=== PATIENT | male | born 1940 | race Caucasian/White ===

== ENCOUNTER → 2016-12-23 | Outpatient (CLI) | payer MEDICARE | END | disposition home or self-care (01) | LOC: PCVCIMAG 09:30 | PROVIDERS: ATTEND Internal Medicine | DX: I65.21 Occlusion and stenosis of right carotid artery (principal); I25.10 Atherosclerotic heart disease of native coronary artery without angina pectoris; I10 Essential (primary) hypertension; I26.99 Other pulmonary embolism without acute cor pulmonale; K90.0 Celiac disease; I21.3 ST elevation (STEMI) myocardial infarction of unspecified site | CPT/HCPCS: 93880; G0463 ==

== ENCOUNTER → 2017-06-23 | Outpatient (CLI) | payer MEDICARE | END | disposition home or self-care (01) | LOC: PCVCCLINIC 13:40 | PROVIDERS: ATTEND Internal Medicine Cardiovascular Disease | DX: I25.10 Atherosclerotic heart disease of native coronary artery without angina pectoris (principal); I10 Essential (primary) hypertension; E78.5 Hyperlipidemia, unspecified; I65.23 Occlusion and stenosis of bilateral carotid arteries; K90.0 Celiac disease; Z86.711 Personal history of pulmonary embolism; Z79.82 Long term (current) use of aspirin; Z79.899 Other long term (current) drug therapy | CPT/HCPCS: 80061; 93005; G0463 ==

== ENCOUNTER → 2017-12-28 | Outpatient (CLI) | payer MEDICARE | END | disposition home or self-care (01) | LOC: PCVCIMAG 14:48 | DX: I65.23 Occlusion and stenosis of bilateral carotid arteries (principal); I25.10 Atherosclerotic heart disease of native coronary artery without angina pectoris; I10 Essential (primary) hypertension; E78.5 Hyperlipidemia, unspecified; K90.0 Celiac disease; Z86.711 Personal history of pulmonary embolism; Z79.82 Long term (current) use of aspirin; Z79.899 Other long term (current) drug therapy | CPT/HCPCS: 36415; 93005; 93880; G0463 ==

== ENCOUNTER → 2018-07-06 | Outpatient (CLI) | payer MEDICARE | END | disposition home or self-care (01) | LOC: PCVCCLINIC 12:37 | PROVIDERS: ATTEND Internal Medicine | DX: I25.10 Atherosclerotic heart disease of native coronary artery without angina pectoris (principal); E78.5 Hyperlipidemia, unspecified; I10 Essential (primary) hypertension | CPT/HCPCS: 36415 ==

== ENCOUNTER → 2018-07-23 | Outpatient (CLI) | payer MEDICARE ==
--- NOTE | 2018-07-23 16:06 | PCVCIMAG ---
APPROVED REPORT Imaging Protocol: Rest Tc-99m/Stress Tc-99m 1 day Study performed: 07/23/2018 08:47:20 Indication: CAD , Pre-Operative CV evaluation Patient Location: Out-Patient Stress Nurse: Lise Noble RN [place] Tech:Maura Roy DEVELOPMENT MANAGER Ht: 6 ft 0 in Wt: 202 lbs BSA: 2.14 m2 HR: 63 bpm BP: 161/67 mmHg BMI: 27.3 Rhythm: SR, First degree AV Block Medical History Medical History: Hyperlipidemia, HTN, PVD, DE Medications: Aspirin, carvedilol (held 24h), ramipril, simvastatin Allergies: No known drug allergies Previous Cardiac Procedures: PCI Pretest Chest Pain Characteristics: No chest pain Resting Data Rest SPECT myocardial perfusion imaging was performed in supine position 45 minutes following the intravenous injection of 10.7 mCi of Tc-99m Sestamibi. Time of rest injection: 0900 Date: 07/23/2018 Administration Route: IV Administration Site: Right Wrist Pharmacologic Stress Pharmacologic stress test was performed by injecting Regadenoson 0.4 mg IV push over 10-15 seconds immediately followed by the intravenous injection of 35 mCi of Tc-99m Sestamibi. Time of stress injection: 1000 Date: 07/23/2018 Administration Route: IV Administration Site: Right Wrist Gated Stress SPECT was performed 45 minutes after stress injection. The images were gated to evaluate regional wall motion and calculate left ventricular ejection fraction. Comments Prior Nuclear Stress Test 05/2016: Nonischemic, inferoapical infarct Stress Test Details Stress Test: Pharmacologic stress testing performed using 0.4 mg of regadenoson per 5 mL given IV over 10 seconds. Reason for pharmacologic stress test: physical limitation. HRMax Heart Rate (APMHR): 140 bpm Resting HR: 63 bpmTarget HR (85% APMHR): 119 bpm Max HR Achieved: 83 bpm % of APMHR: 59 Recovery HR: 81 bpm BP Resting BP: 161/67 mmHg Recovery BP: 173/77 mmHg ECG Resting ECG: SR with 1st degree AVB Stress ECG: SR with 1st degree AVB ST Change: None Maximum ST Deviation: 0 mm Arrhythmia: None Recovery ECG: SR with 1st degree AVB Recovery ST Change: None Recovery ST Deviation: 0 mm Recovery Arrhythmia: None Clinical Reason for Termination: Completed protocol Stress Symptoms: Nausea Exercise duration: 0 min 55 sec Symptoms resolved with caffeine. Stress ECG Conclusion ECG: Non-ischemic Clinical: Non-ischemic Study Quality Study: Good Study Data Post stress, the left ventricular ejection was 71%.. SSS: 5 SRS: 5 SDS: 2 TID = 1.21. Perfusion No evidence of stress induced ischemia. 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 Nuclear Conclusion No evidence of stress induced ischemia. 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 Post stress, the left ventricular ejection was 71%. No change since prior study dated May 2016. Interpreted by: Kevin Shahid MD Electronically Approved: 07/23/2018 15:55:47 <Conclusion> ECG: Non-ischemic Clinical: Non-ischemic
== END | disposition home or self-care (01) ==
LOC: PCVCIMAG 12:36
PROVIDERS: ATTEND Internal Medicine
DX: Z01.818 Encounter for other preprocedural examination (principal); I25.10 Atherosclerotic heart disease of native coronary artery without angina pectoris; I73.9 Peripheral vascular disease, unspecified; I10 Essential (primary) hypertension; E78.5 Hyperlipidemia, unspecified; I21.9 Acute myocardial infarction, unspecified
CPT/HCPCS: 78452; 93017; A9500

== ENCOUNTER → 2018-07-27 | Outpatient (CLI) | payer MEDICARE ==
[~2018-07-27] MED LIST: DIAZEPAM 10 MG TABLET. ONE; IOHEXOL 300 MG/ML 100ML VIAL. ONE; IV NORMAL SALINE 1000ML BAG 1,000 ML ONE; LIDOCAINE 1%/EPI 1:100,000 20 ML VIAL. ONE; MIDAZOLAM HCL/PF 2 MG/2 ML VIAL. ONE; REGADENOSON 0.4 MG/5 ML DISP.SYRIN. IV ONE; fentaNYL PF VIAL 100 MCG/2 ML VIAL ONE
--- NOTE | 2018-07-27 12:27 | PCVCINTER ---
EXAM: 1. CERVICOEPHALIC ARCH AORTOGRAM. 2. BILATERAL CAROTID ANGIOGRAPHY. 3. LEFT VERTEBROBASILAR ANGIOGRAPHY. 4. BILATERAL RENAL ANGIOGRAPHY. 5. BILATERAL ILEOFEMORAL ANGIOGRAPHY. INDICATION: Carotid occlusive disease. Left subclavian steal. Hypertension. Renal atherosclerosis. Peripheral arterial disease. PROCEDURE: Procedure and risks of the procedures listed above were discussed with the patient and consent obtained. Risks including but not limited to bleeding, infection, stroke, vascular injury, neurologic injury, embolization, allergic reactions, and contrast-induced nephropathy requiring dialysis were discussed as appropriate and consent obtained. Patient was placed on the angiography table. IV conscious sedation was used throughout procedure with appropriate monitoring from 11:00 AM through 11:45 AM. The right groin was prepped and draped in the normal sterile fashion. Ultrasound was used to interrogate the right groin and demonstrate the right common femoral artery. An ultrasound image was saved. Under ultrasound guidance a 21 gauge needle was used to gain access into the right common femoral artery and a 6F vascular sheath was placed. Catheter was placed into the ascending aorta and cervicocephalic aortic arch angiogram performed. Catheter was placed into the suprarenal abdominal aorta and abdominal aortic angiogram performed. Catheter was placed at the aortic bifurcation and bilateral iliofemoral angiography performed. Catheter was placed into the right common carotid artery and right common carotid angiogram performed. Catheter was placed into the left common carotid artery and left common carotid angiogram performed. Catheter was placed into the left vertebral artery and left vertebro-basilar angiogram performed. Catheter was placed into the right renal artery and right renal angiogram performed. Catheter was placed into the left renal artery and left renal angiogram performed. Catheters and wires were removed and hemostasis obtained using the FISH device. No immediate complications. FINDINGS: Cervicocephalic arch aortogram: The origins of the great vessels all show good patency. Note is made the left vertebral artery arises directly from the aortic arch in nearly a common origin with the left subclavian artery. Right common carotid angiogram: This injection fills the right anterior and middle cerebral distributions which are otherwise unremarkable. The cavernous and petrous carotid artery shows good patency. Moderate plaque in the carotid bulb. Smooth 50% stenosis proximal internal carotid artery. The common and external carotid arteries are patent. Left common carotid angiogram: This injection fills the left anterior and middle cerebral distributions which are unremarkable. The cavernous and petrous carotid arteries show good patency. The cervical internal carotid artery shows good patency throughout. The common and external carotid arteries are patent. Left vertebrobasilar angiogram: The left vertebral artery shows good patency throughout its length. The basilar artery is patent. The right and left posterior cerebral arteries are patent. Abdominal aortogram: There are 2 right and one left renal artery. Mild plaque infrarenal abdominal aorta without significant stenosis. Right renal angiogram: There are 2 right renal arteries. The dominant renal artery shows a 90% stenosis at its origin. This origin is adjacent to the origin of the right accessory renal artery which shows good patency throughout. Given the proximity of these 2 origins it was not felt advisable to place a right renal artery stent in this patient with normal renal function and no difficult to control hypertension. Left renal angiogram: Moderate plaque proximal vessel results in a smooth 40% stenosis not felt be critically flow-limiting. Bilateral iliofemoral angiogram: The right and left common and external iliac arteries both show good patency. Both internal iliac arteries are patent. The right and left common femoral and profunda femoral arteries are patent as are the visualized portions of the upper superficial femoral arteries. IMPRESSION: Smooth 50% stenosis proximal right cervical internal carotid artery. Continued medical therapy is suggested with interval duplex follow-up. Left cervical internal carotid artery shows good patency throughout. 90% stenosis origin of the dominant right renal artery. Its origin is adjacent to the origin of the right accessory renal artery and no intervention was performed at this time. LOC:[id number]
== END | disposition home or self-care (01) ==
LOC: PCVCINTER 09:15
PROVIDERS: ATTEND Nuclear Medicine Nuclear Cardiology
DX: I65.21 Occlusion and stenosis of right carotid artery (principal); I70.1 Atherosclerosis of renal artery; I10 Essential (primary) hypertension; I70.0 Atherosclerosis of aorta; I25.10 Atherosclerotic heart disease of native coronary artery without angina pectoris; E78.5 Hyperlipidemia, unspecified; E03.9 Hypothyroidism, unspecified; I25.2 Old myocardial infarction; Z86.711 Personal history of pulmonary embolism; H40.9 Unspecified glaucoma; Z90.49 Acquired absence of other specified parts of digestive tract; Z98.890 Other specified postprocedural states; Z95.5 Presence of coronary angioplasty implant and graft; Z98.42 Cataract extraction status, left eye; Z96.1 Presence of intraocular lens; Z79.899 Other long term (current) drug therapy
CPT/HCPCS: 36223; 36226; 36252; 76937; 99152; 99153; C1751; C1760; C1769; C1894; J1644; J2250; J2785; J3010; J3490; J7030; Q9967; 36225; 75630

== ENCOUNTER → 2019-01-05 | Outpatient (CLI) | payer MEDICARE | END | disposition home or self-care (01) | LOC: PCVCCLINIC 14:00 | PROVIDERS: ATTEND Internal Medicine | DX: I25.10 Atherosclerotic heart disease of native coronary artery without angina pectoris (principal); I10 Essential (primary) hypertension; E78.5 Hyperlipidemia, unspecified; I65.23 Occlusion and stenosis of bilateral carotid arteries; K90.0 Celiac disease; E03.9 Hypothyroidism, unspecified; I25.2 Old myocardial infarction; Z86.711 Personal history of pulmonary embolism | CPT/HCPCS: 93005; G0463 ==